=== PATIENT | female | born 1965 | race Caucasian/White ===

== ENCOUNTER → 2021-12-06 | Outpatient (CLI) | payer MEDICAID ==
[~2021-12-06] MED LIST: ATEN50TA PO; HYDR12.55 PO; PRO40 PO
== END | disposition home or self-care (01) ==
LOC: SLB 08:00 → EDSTATUS 12-12 11:30
PROVIDERS: ATTEND Obstetrics & Gynecology
DX: Z01.812 Encounter for preprocedural laboratory examination (principal); N95.0 Postmenopausal bleeding; R93.89 Abnormal findings on diagnostic imaging of other specified body structures; Z20.822 Contact with and (suspected) exposure to COVID-19
CPT/HCPCS: 36415; U0003

== ENCOUNTER 2022-02-25 09:00 | Day surgery (SDC) | payer MEDICAID ==
[~2022-02-25] VITALS: Ht 152.4 cm; Wt 81.6 kg
[2022-02-25] MEDS ORDERED: ONDANSETRON HCL 4 MG/2 ML VIAL IVP ONE (13:28)
[2022-02-25] MEDS ORDERED: SEVOFLURANE 15 MIN GAS INH ONE (13:28)
[2022-02-25] MEDS ORDERED: NS IRRIG SOLN 1000 ML IR ONE (13:28)
[2022-02-25] MEDS ORDERED: NS 1000 ML IV.SOLN IV ONE (13:28)
[2022-02-25] MEDS ORDERED: METOCLOPRAMIDE HCL 10 MG/2 ML VIAL IVP ONE (13:28)
[2022-02-25] MEDS ORDERED: GLYCOPYRROLATE 0.2 MG/ML VIAL IJ ONE (13:28)
[2022-02-25] MEDS ORDERED: fentaNYL CITRATE/PF 100 MCG/2 ML AMP IVP ONE (13:28)
[2022-02-25] MEDS ORDERED: KETOROLAC TROMETHAMINE 30 MG VIAL IVP ONE (13:28)
[2022-02-25] MEDS ORDERED: LIDOCAINE 1% 10 MG/ML, 20 ML MDV INJ ONE ×2 (13:28)
[2022-02-25] MEDS ORDERED: PROPOFOL 200MG/ 20ML VIAL (DIPRIVAN) IV ONE (13:28)
[2022-02-25] MEDS ORDERED: LR 1,000 ML IV.SOLN IV ONE (13:28)
[2022-02-25] MEDS ORDERED: ONDANSETRON HCL 4 MG/2 ML VIAL IVP PRN (14:30)
[2022-02-25] MEDS ORDERED: HYDROmorphone 1 MG/ML INJ. CARTRIDGE IVP PRN (14:30)
[2022-02-25] MEDS ORDERED: KETOROLAC TROMETHAMINE 30 MG VIAL IVP PRN (14:30)
[2022-02-25] MEDS ORDERED: HYDROmorphone 2 MG/ML VIAL IVP PRN (14:30)
[2022-02-25 16:12] VITALS: BP_SYST 120
== END 2022-02-25 17:35 | disposition home or self-care (01) ==
LOC: SDS 09:00 → SMU 09:05 → SDS 17:35
PROVIDERS: ATTEND Obstetrics & Gynecology
DX: N95.0 Postmenopausal bleeding (principal); R93.89 Abnormal findings on diagnostic imaging of other specified body structures; I10 Essential (primary) hypertension; Z90.49 Acquired absence of other specified parts of digestive tract; Z79.899 Other long term (current) drug therapy; Z20.822 Contact with and (suspected) exposure to COVID-19
CPT/HCPCS: 86886; 84703; 86900; 86901; 36415; 58558; 88305; U0003; J3490; J1885; J2001; J2765; J2405; J2704; J3010; J7120; J7030; C1819